=== PATIENT | male | born 2000 | race Caucasian/White ===

== ENCOUNTER 2023-06-08 10:26 | Emergency (ER) | payer OTHER, BC, SELFPAY ==
[2023-06-08 11:08] VITALS: BP 111/75; PULSE 80; RESP 16; TEMP 37.6; O2SAT 100
--- NOTE | 2023-06-08 11:56 | ED.URI ---
HPI - URI/Sore Throat General Chief Complaint: Upper Respiratory Infection Stated Complaint: SORE THROAT/REDNESS Time Seen by Provider: 06/08/23 11:50 Source: patient, RN notes reviewed and old records reviewed Mode of arrival: ambulatory Limitations: no limitations History of Present Illness HPI Narrative: 22 year old male presents to [facility] with complaints of developing Friday morning sore throat,cough, headache and body aches with some fevers. Patient reports that he does have history of strep throat in the past. Patient reports that he is presently attending [employer] is unsure of any known exposure to COVID or flu. MD elicited complaint: cough, sore throat and other (headache, body aches) Pertinent past history: other (strep) Onset (ago): day(s) (1) Pain scale (0-10): 5 Able to tolerate fluids by mouth: Yes Treatments prior to arrival: other (NyQuil) Related Data Home Medications Medication Instructions Recorded Confirmed No Home Medications 06/08/23 06/08/23 Allergies Allergy/AdvReac Type Severity Reaction Status Date / Time No Known Allergies Allergy Verified 06/08/23 11:10 Review of Systems Review of Systems: CONSTITUTIONAL:Reports malaise, chills, sweats, or fever. EYES: Denies visual changes, redness, or discharge. ENT: Reports rhinorrhea, congestion, sinus pain,no otalgia and positive for sore throat. CARDIOVASCULAR: Denies chest pain, palpitations, or edema. RESPIRATORY: Reports cough.? Denies dyspnea. GASTROINTESTINAL: Denies abdominal pain, nausea, vomiting, diarrhea SKIN: Denies rash or itching. MUSCULOSKELETAL: Reports myalgia. NEUROLOGIC:Reports headache. All systems reviewed & are unremarkable except as noted in HPI and below PMFSH Past Medical History Medical History (Updated 06/10/23 @ 11:14 by Jackelin Woodard NP) Clavicle fracture Fracture of wrist Strep throat Surgical History Surgical History (Updated 06/10/23 @ 11:15 by Jackelin Woodard NP) S/P LASIK surgery of both eyes Social History Social History (Updated 06/10/23 @ 11:15 by Jackelin Woodard NP) Smoking status: Never smoker Second hand tobacco smoke exposure: Yes Alcohol intake: current Substance use type: does not use Living arrangements: with family Gender identity (if verbalized by the patient): Male Comments At time of signature, agree with nursing past medical, surgical, social and family history. There is no relevant family history pertinent to the presenting complaint Exam Narrative: GENERAL: Well-appearing, well-nourished, and in no acute distress. HEAD: Normocephalic EYES: PERRLA, conjunctivae clear ENT: Nares clear, turbinates edematous and erythematous, clear discharge. Mucous membranes moist. TM pearly maier with dull light reflex bilaterally; no tragal tenderness. Oropharynx erythematous without lesions. Tonsils red enlarged and without exudate, no drooling, no hoarseness, no trismus, uvula midline. NECK: Supple. lymphadenopathy CHEST: Clear to auscultation, breath sounds equal. No wheezing, rhonchi, rales, or stridor. No respiratory distress, speaks in full sentences.cough,SAO2 100% on room air HEART: Regular rate and rhythm. No murmur heard. SKIN: Warm, dry, no rash. NEURO: Alert and oriented x3. PSYCH: Normal mood and affect Course Course Emergency Course: Patient is aware of diagnosis, understands and agrees to treatment plan.? Anticipatory guidance given.? Patient agrees to follow-up as directed and is aware of reasons to seek care at the emergency department. Portions of this record may have been created with voice recognition software Level of Care: Express Care Visit Vital Signs Vital signs: Vital Signs Temperature 37.6 C 06/08/23 11:08 Pulse Rate 80 06/08/23 11:08 Respiratory Rate 16 06/08/23 11:08 Blood Pressure 111/75 06/08/23 11:08 Pulse Oximetry 100 06/08/23 11:08 Temperature 37.6 C
== END 2023-06-08 12:13 | disposition home or self-care (01) ==
PROVIDERS: Emergency Provider Registered Nurse; PCP Family Medicine Sports Medicine
DX: J06.9 Acute upper respiratory infection, unspecified (principal); J02.9 Acute pharyngitis, unspecified; Z20.822 Contact with and (suspected) exposure to COVID-19
CPT/HCPCS: 87081; 87426; 87804; 87880; 99213; C9803; G0463